=== PATIENT | male | born 1975 | race Caucasian/White ===

== ENCOUNTER 2020-07-01 16:11 | Outpatient (CLI) | payer BC, SELFPAY ==
[2020-07-01 16:45] LABS: Red Blood Count Semen 0-4 /hpf; Viscosity Semen Normal; Volume Semen 2.4 mL (2-5)
[2020-07-01 16:46] LABS: Side 1 32; Side 2 31; Sperm Immotility 90 % (50-60); Sperm Non-Progressive Motility 5 % (5-10); Sperm Progressive Motility 5 % (31-34)
[2020-07-01 16:52] LABS: Pathology Referral Yes
[2020-07-01 17:04] LABS: Sperm Vitality-% Live Sperm 33 %
== END 2020-07-01 16:12 | disposition home or self-care (01) ==
LOC: LAB 16:21
PROVIDERS: Visit Provider Obstetrics & Gynecology
DX: N46.9 Male infertility, unspecified (principal)
CPT/HCPCS: 80500; 89320